=== PATIENT | male | born 2000 | race Caucasian/White ===

== ENCOUNTER 2022-06-10 13:12 | Emergency (ER) | payer BC, OTHER ==
[~2022-06-10] VITALS: Ht 177.8 cm; Wt 81.2 kg
[2022-06-10 13:15] VITALS: BP 118/56
--- NOTE | 2022-06-10 13:55 | NUR ---
PT AMBULATED TO ROOM 6
--- NOTE | 2022-06-10 14:06 | NUR ---
MD ANDUJAR AT BEDSIDE
[2022-06-10] MEDS ORDERED: TRAM50TA1 PO (14:11)
--- NOTE | 2022-06-10 14:15 | NUR ---
22/M PRESENTS TO ED WITH C/O BILATERAL HIP AND SHOULDER PAIN X1 YEAR. DENIES RECENT INJURY OR TRAUMA. STATES HE HAD RIGHT HIP SURGERY LAST YEAR AND HAS HAD PAIN SINCE BUT IS WAITING TO SEE A SPECIALIST. REPORTS WAITING TO FILL RX OF GABAPENTIN.
--- NOTE | 2022-06-10 14:19 | NUR ---
Patient discharged with v/s stable. Written and verbal after care instructions FOR HIP PAIN given and explained. Patient alert, oriented and verbalized understanding of instructions. Ambulatory with steady gait. All questions addressed prior to discharge. ID band removed. Patient advised to follow up with PMD. Rx of TRAMADOL given. Opportunity to ask questions provided and answered.
== END 2022-06-10 14:19 | disposition home or self-care (01) ==
LOC: MED 13:12
DX: G89.29 Other chronic pain (principal); M25.551 Pain in right hip; M25.552 Pain in left hip; M25.511 Pain in right shoulder; M25.512 Pain in left shoulder; Z79.899 Other long term (current) drug therapy
CPT/HCPCS: 99283